=== PATIENT | female | born 1980 | race Caucasian/White ===

== ENCOUNTER 2023-01-11 12:42 | Outpatient (CLI) | payer OTHER, SELFPAY ==
--- NOTE | ~2023-01-11 | MMUS_ITS ---
EXAMINATION: MM diagnostic carmen BI w kristie, US breast BI limited HISTORY: Palpable lump of the left chest wall near the left breast. TECHNIQUE: Craniocaudal, mediolateral, and mediolateral oblique 3-D tomosynthesis images of the jyoti ts were performed and synthetic 2-D images were generated. CAD analysis was submitted and interpreted . High resolution limited bilateral breast ultrasound was performed. COMPARISON: None, baseline BREAST PARENCHYMAL COMPOSITION: The breasts are heterogeneously dense, which may obscure small masses . FINDINGS: MAMMOGRAPHIC FINDINGS: Right breast: There is a 5 mm round, obscured, low density mass in the middle third of the slightly u pper breast at the 12:00 location 3.5 cm from the nipple. No suspicious calcification or architectura l distortion are identified. Left breast: No mammographic correlate is identified for the reported palpable abnormality just infer ior to the left breast. There are multiple groups of left breast calcifications. The largest group is seen in the posterior third of the breast at the 6:00 location 7 cm from the nipple and appears to d emonstrate fine pleomorphic morphology. Additional small groups of calcifications appear to be predom inantly located in the lower outer quadrant of the breast. ULTRASOUND: Right breast: There is a 5 mm cyst of the right breast corresponding to the mammographic finding in q uestion. No suspicious cystic or solid mass is identified. Left breast: No sonographic correlate is identified for the reported palpable abnormality of the left breast. IMPRESSION: 1. Multiple groups of indeterminate calcifications of the left breast. Recommend stereotactic biopsy of the largest group at the 6:00 location the posterior third of the breast. If pathology is concerni ng, would recommend biopsy of one of the more distant groups of calcifications or MRI to assess exten t of disease. 2. No mammographic or sonographic correlate identified for the reported palpable abnormality of the l eft chest wall. Clinical follow-up is recommended. BI-RADS category 4, suspicious findings. Reviewed, dictated and finalized at location [facility]. IMPRESSION: 1. Multiple groups of indeterminate calcifications of the left breast. Recommen d stereotactic biopsy of the largest group at the 6:00 location the posterior t hird of the breast. If pathology is concerning, would recommend biopsy of one o f the more distant groups of calcifications or MRI to assess extent of disease. 2. No mammographic or sonographic correlate identified for the reported palpabl e abnormality of the left chest wall. Clinical follow-up is recommended. BI-RADS category 4, suspicious findings.
== END 2023-01-11 12:43 | disposition home or self-care (01) ==
PROVIDERS: PCP Family Medicine; Visit Provider Nurse Practitioner
DX: N63.0 Unspecified lump in unspecified breast (principal); R92.8 Other abnormal and inconclusive findings on diagnostic imaging of breast
CPT/HCPCS: 76642; 77062; 77066; G0279

== ENCOUNTER 2023-01-27 12:58 | Outpatient (CLI) | payer OTHER, SELFPAY ==
--- NOTE | ~2023-01-27 | MM_ITS ---
EXAMINATION: MM stereotactic bx LT, MM stereotactic specimen LT, MM post biopsy diagnostic LT, Specim en Radiograph, Tissue Marker Clip Placement, Unilateral Mammogram DATE: 01/27/2023 14:58 (accession [id number]), 01/27/2023 14:59 (accession [id number]), 01/27 14:59 (accession [id number]) INDICATION: Abnormal mammogram: Multiple groups of indeterminate microcalcifications of left breast; a cluster of grouped microcalcifications was targeted in the posterior inner aspect of the lower oute r quadrant of the left breast. TECHNIQUE AND FINDINGS: The risks and potential benefits of the procedure were discussed with the patient and written informe d consent was obtained. Timeout procedure was performed. The patient was placed in the prone position on the dedicated stereotactic table with the left breast in lateral medial compression, and the area of interest was localized and targeted utilizing digital imaging with stereotaxis. After sterile preparation of the skin, 1% lidocaine was utilized for local anesthesia at the skin pun cture site and 1% lidocaine with epinephrine was utilized for deeper local anesthesia/is about the bi opsy site. A 9 G [employer] vacuum assisted biopsy needle was advanced to the level of the calcification of interest from a lateral medial approach utilizing stereotactic guidance and a total of 14 tissue c ore biopsies were obtained. A specimen radiograph demonstrates that the calcifications of interest are included within the tissue cores. A tissue marker clip was then placed at the biopsy site. A digital mammographic exposure co nfirmed the successful deployment of the biopsy marker. The needle was removed and hemostasis was ac hieved. A sterile bandage was applied. The patient tolerated the procedure well and there is no zhou dence of significant immediate complication. The patient was given verbal as well as written postpro cedural instructions prior to discharge from the department. Tissue cores were submitted to surgical pathology for histologic analysis. A 2-view left unilateral digital mammogram was obtained post procedure, demonstrating the tissue phil er clip in expected position. IMPRESSION: Successful stereotactic biopsy of posterior lower outer quadrant grouped microcalcifications, follow ed by tissue marker clip placement. Please refer to pathology report for histologic analysis. Reviewed, dictated and finalized at [facility]. biopsy Reviewed, dictated and finalized at location [facility]. IMPRESSION: Successful stereotactic biopsy of posterior lower outer quadrant grouped micro calcifications, followed by tissue marker clip placement. Please refer to path ology report for histologic analysis. IMPRESSION: Successful stereotactic biopsy of posterior lower outer quadrant grouped micro calcifications, followed by tissue marker clip placement. Please refer to path ology report for histologic analysis.
== END 2023-01-27 12:59 | disposition home or self-care (01) ==
PROVIDERS: PCP Family Medicine; Visit Provider Nurse Practitioner
DX: R92.2 Inconclusive mammogram (principal); N60.92 Unspecified benign mammary dysplasia of left breast
CPT/HCPCS: 19081; 77065; 88305; 88342